=== PATIENT | male | born 1960 | race Caucasian/White ===

== ENCOUNTER 2018-04-25 08:22 | Inpatient (IN) | payer BC ==
[2018-04-19 12:02] LABS: BASOPHILS % (AUTO) 0.6 % (0-1); EOSINOPHILS # (AUTO) 0.2 X10'3 (0-0.9); EOSINOPHILS % (AUTO) 2.6 % (0-6); MEAN CORPUSCULAR HEMOGLOBIN 32.5 PG (27.0-31.0); MEAN CORPUSCULAR HGB CONC 34.3 % (33.0-36.5); MEAN CORPUSCULAR VOLUME 94.7 FL (78-98); MONOCYTES # (AUTO) 0.9 X10'3 (0-0.9); MONOCYTES % (AUTO) 12.9 % (2-12); NEUTROPHILS # (AUTO) 3.8 X10'3 (1.8-7.7); NEUTROPHILS % (AUTO) 54.9 % (42-75); PRE OP HEMATOCRIT 45.5 % (42.0-52.0); PRE OP HEMOGLOBIN 15.6 g/dL (14.0-17.9); PRE OP PLATELET COUNT 178 X10'3 (140-440); RED CELL DISTRIBUTION WIDTH 13.2 % (11.5-14.5)
[2018-04-19 12:16] LABS: ALBUMIN 4.2 G/DL (3.4-5.0); ALBUMIN/GLOBULIN RATIO 1.3 (1.1-1.5); ALKALINE PHOSPHATASE 109 IU/L (46-116); BLOOD UREA NITROGEN 14 MG/DL (7-18); BUN/CREATININE RATIO 17.1 (5.4-32.0); CHLORIDE 104 MMOL/L (99-107); CREATININE 0.82 MG/DL (0.60-1.10); PRE OP ALT 57 U/L (30-65); PRE OP ANION GAP 9 (8-16); PRE OP AST 31 U/L (10-37); PRE OP BILIRUB, TOTAL 0.8 MG/DL (0.0-1.0); PRE OP GLUCOSE 86 MG/DL (70-104); PRE OP SODIUM 143 MMOL/L (135-145); TOTAL CARBON DIOXIDE 29.8 MMOL/L (24-32); TOTAL PROTEIN 7.4 G/DL (6.4-8.2); eGFR > 90 ML/MIN
[2018-04-19 15:00] LABS: LARGE PLATELETS FEW; PLATELET ESTIMATE NORMAL
[~2018-04-25] VITALS: Ht 188 cm; Wt 133.8 kg
[2018-04-25] VITALS (19 sets, daily range): BP systolic 100–141; BP diastolic 58–95
[~2018-04-25 08:22] MED LIST: ATOR40TA PO; DOCUMENT DATE & TIME OF BETA-BLOCKER PO ONE; FURO-150 PO; METO-395 PO; NAPR-56 PO; NITR0.4T48 SL; POTA10TA36 PO; TRAM50TA2 PO; acetaminophen 325mg tablet PO ONE; ceFAZolin inj. 3,000 MG in normal saline 100ml IV soln 100 ML IV ONE; famotidine 20mg tablet PO ONE; gabapentin 300mg capsule PO ONE; metoclopramide 5 mg/ml inj IV ONE; oxyCODONE SR 10mg (sust. release) tab -2 tabs (20mg) PO ONE; ringers solution, lacted 1,000 ML IV SCH; tranexamic acid inj. 1,000 MG in normal saline 100ml IV soln 90 ML IV ONE; vancomycin inj 1,500 MG in normal saline 300ml IV soln IV ONE
[2018-04-25] MEDS ORDERED: LIDOcaine 1% (10mg/ml) 2ml vial ONE (09:11)
[2018-04-25] MEDS ORDERED: vancomycin 1,000mg inj ONE (09:44)
[2018-04-25] MEDS ORDERED: ceFAZolin 1000mg inj ONE (09:44)
[2018-04-25] MEDS ORDERED: ringers solution, lacted 1,000 ML IV SCH (10:16)
[2018-04-25] MEDS ORDERED: meperidine/PF 25mg/ml syringe IV PRN ×3 (10:20)
[2018-04-25] MEDS ORDERED: proCHLORperazine 10 MG/2 ml inj IV PRN (10:20)
[2018-04-25] MEDS ORDERED: morphine 4 MG/ML inj SYRINge IV PRN ×2 (10:20)
[2018-04-25] MEDS ORDERED: ondansetron/PF 4mg/2ml inj IV PRN ×2 (10:20→13:55)
[2018-04-25] MEDS ORDERED: tetracaine 1% (10mg/ml) pres. free inj. ONE (10:46)
[2018-04-25] MEDS ORDERED: ROPIVAcaine 0.5% (5mg/ml) 30ml vial ONE (10:47)
[2018-04-25] MEDS ORDERED: MIDAZolam 1mg/ml 10ml vial ONE (10:48)
[2018-04-25] MEDS ORDERED: fentaNYL/PF 50MCG/1 ML 2ML syringe ONE (10:49)
[2018-04-25] MEDS ORDERED: BUPIVAcaine/dex-water/PF 7.5 mg/ml 2ml ampul ONE (10:50)
[2018-04-25] MEDS ORDERED: Thrombin (Bovine) 5,000 unit vial TP ONE (11:57)
[2018-04-25] MEDS ORDERED: ROPIVAcaine inj 200 MG, ketorolac trometh inj. 30 MG, epiNEPHrine inj 0.6 MG, morphine ... IU ONE ×5 (12:20)
[2018-04-25] MEDS ORDERED: diphenhydrAMINE 25mg capsule PO PRN ×2 (13:55)
[2018-04-25] MEDS ORDERED: HYDROmorphone 1 mg/ml syringe IV PRN (13:55)
[2018-04-25] MEDS ORDERED: bisacodyl 10mg suppository rectal RC PRN (13:55)
[2018-04-25] MEDS ORDERED: oxyCODONE IR 5mg (immed. release) tablet PO PRN (13:55)
[2018-04-25] MEDS ORDERED: acetaminophen 325mg tablet PO PRN (13:55)
[2018-04-25] MEDS: acetaminophen 325mg tablet PO SCH ×2 (14:00→20:16)
[2018-04-25] MEDS ORDERED: propofol inj 20 ML IV ONE (14:10)
[2018-04-25] MEDS: oxyCODONE IR 5mg (immed. release) tablet PO PRN (16:19)
[2018-04-25] MEDS: ceFAZolin 1GM/D5W- ADD-VANTAGE 50 ML IV SCH (16:22)
[2018-04-25] MEDS ORDERED: tranexamic acid inj. 1,000 MG in normal saline 100ml IV soln 100 ML IV ONE (16:55)
[2018-04-25] MEDS: HYDROmorphone 1 mg/ml syringe IV PRN (16:59)
[2018-04-25] MEDS ORDERED: nitroGLYCERIN 0.4mg SUBLingual tab SL PRN (18:00)
[2018-04-25] MEDS: metoprolol succinate 25mg (24-HOUR) SR. Tablet PO SCH (18:30)
[2018-04-25] MEDS ORDERED: vancomycin/NS 1 GM ADD-VANTAGE 250 ML IV SCH (20:00)
[2018-04-25] MEDS: potassium cl 20mEq in 1/2 NS 1,000 ML IV SCH ×2 (20:15→21:52)
[2018-04-25] MEDS: oxyCODONE SR 10mg (sust. release) tab PO SCH (20:16)
[2018-04-25] MEDS: sennosides 8.6mg tablet PO SCH (21:00)
[2018-04-26] VITALS (7 sets, daily range): BP systolic 123–144; BP diastolic 67–78
[2018-04-26] MEDS: ceFAZolin 1GM/D5W- ADD-VANTAGE 50 ML IV SCH (00:24)
[2018-04-26] MEDS: acetaminophen 325mg tablet PO SCH ×4 (02:18→20:17)
[2018-04-26] MEDS: oxyCODONE IR 5mg (immed. release) tablet PO PRN ×5 (02:18→22:51)
[2018-04-26 05:56] LABS: BASOPHILS % (AUTO) 0.3 % (0-1); EOSINOPHILS # (AUTO) 0.1 X10'3 (0-0.9); EOSINOPHILS % (AUTO) 0.9 % (0-6); HEMATOCRIT 40.6 % (42.0-52.0); LYMPHOCYTES % (AUTO) 8.4 % (21-51); MEAN CORPUSCULAR HEMOGLOBIN 32.8 PG (27.0-31.0); MEAN CORPUSCULAR HGB CONC 34.6 % (33.0-36.5); MEAN CORPUSCULAR VOLUME 94.7 FL (78-98); MEAN PLATELET VOLUME 11.2 FL (7.4-10.4); MONOCYTES # (AUTO) 1.1 X10'3 (0-0.9); MONOCYTES % (AUTO) 8.9 % (2-12); NEUTROPHILS # (AUTO) 9.6 X10'3 (1.8-7.7); NEUTROPHILS % (AUTO) 81.5 % (42-75); PLATELET COUNT 145 X10'3 (140-440); RED BLOOD COUNT 4.29 X10'6 (4.70-6.10); RED CELL DISTRIBUTION WIDTH 12.8 % (11.5-14.5); WHITE BLOOD COUNT 11.8 X10'3 (4.5-11.0)
[2018-04-26] MEDS: potassium cl 20mEq in 1/2 NS 1,000 ML IV SCH ×3 (06:01→21:18)
[2018-04-26] MEDS ORDERED: WALKERFR (07:46)
[2018-04-26] MEDS: potassium chloride 10mEq ER tablet PO SCH (08:54)
[2018-04-26] MEDS: metoprolol succinate 25mg (24-HOUR) SR. Tablet PO SCH (08:55)
[2018-04-26] MEDS: oxyCODONE SR 10mg (sust. release) tab PO SCH ×3 (08:55→20:25)
[2018-04-26] MEDS: atorvastatin 20mg tablet PO SCH (08:55)
[2018-04-26] MEDS: furosemide 20MG tablet PO SCH (08:55)
[2018-04-26] MEDS: enoxaparin 40mg/0.4ml syringe SQ SCH (08:56)
[2018-04-26] MEDS: HYDROmorphone 1 mg/ml syringe IV PRN ×2 (14:05→18:54)
[2018-04-26] MEDS: sennosides 8.6mg tablet PO SCH (20:15)
[2018-04-26] MEDS: celeCOXIB 100mg capsule PO SCH (20:16)
[2018-04-27] MEDS: acetaminophen 325mg tablet PO SCH ×2 (02:07→08:00)
[2018-04-27] MEDS: HYDROmorphone 1 mg/ml syringe IV PRN ×5 (02:08→19:31)
[2018-04-27] MEDS: oxyCODONE IR 5mg (immed. release) tablet PO PRN (05:18)
[2018-04-27 05:34] LABS: BASOPHILS # (AUTO) 0.1 X10'3 (0-0.2); BASOPHILS % (AUTO) 0.7 % (0-1); EOSINOPHILS # (AUTO) 0.3 X10'3 (0-0.9); EOSINOPHILS % (AUTO) 3.7 % (0-6); HEMATOCRIT 37.6 % (42.0-52.0); HEMOGLOBIN 12.9 g/dl (14.0-17.9); LYMPHOCYTES # (AUTO) 2.2 X10'3 (1.1-4.8); LYMPHOCYTES % (AUTO) 26.1 % (21-51); MEAN CORPUSCULAR HEMOGLOBIN 32.6 PG (27.0-31.0); MEAN CORPUSCULAR HGB CONC 34.4 % (33.0-36.5); MEAN CORPUSCULAR VOLUME 94.9 FL (78-98); MEAN PLATELET VOLUME 10.7 FL (7.4-10.4); MONOCYTES # (AUTO) 1.2 X10'3 (0-0.9); MONOCYTES % (AUTO) 14.2 % (2-12); NEUTROPHILS # (AUTO) 4.6 X10'3 (1.8-7.7); NEUTROPHILS % (AUTO) 55.3 % (42-75); PLATELET COUNT 152 X10'3 (140-440); RED BLOOD COUNT 3.97 X10'6 (4.70-6.10); WHITE BLOOD COUNT 8.3 X10'3 (4.5-11.0)
[2018-04-27 06:00] VITALS: BP 124/65
[2018-04-27] MEDS: oxyCODONE SR 10mg (sust. release) tab PO SCH ×2 (08:19→20:31)
[2018-04-27] MEDS: potassium chloride 10mEq ER tablet PO SCH (08:19)
[2018-04-27] MEDS: celeCOXIB 100mg capsule PO SCH ×2 (08:19→20:30)
[2018-04-27] MEDS: atorvastatin 20mg tablet PO SCH (08:19)
[2018-04-27] MEDS: furosemide 20MG tablet PO SCH (08:19)
[2018-04-27] MEDS: enoxaparin 40mg/0.4ml syringe SQ SCH (08:20)
[2018-04-27] MEDS: metoprolol succinate 25mg (24-HOUR) SR. Tablet PO SCH (08:20)
[2018-04-27] MEDS: oxyCODONE/APAP 10/325mg tablet PO PRN ×4 (08:45→21:46)
[2018-04-27 10:00] VITALS: BP 154/70
[2018-04-27] MEDS ORDERED: acetaminophen 325mg tablet PO PRN (13:55)
[2018-04-27 17:00] VITALS: BP 141/75
[2018-04-27] MEDS: magnesium hydroxide 30ml (MOM) UD suspension PO PRN (20:29)
[2018-04-27] MEDS: sennosides 8.6mg tablet PO SCH (20:29)
[2018-04-27 22:00] VITALS: BP 149/75
[2018-04-28] MEDS: oxyCODONE/APAP 10/325mg tablet PO PRN ×5 (01:38→23:27)
[2018-04-28 06:34] VITALS: BP 139/83
[2018-04-28] MEDS: enoxaparin 40mg/0.4ml syringe SQ SCH (07:50)
[2018-04-28] MEDS: celeCOXIB 100mg capsule PO SCH ×2 (07:50→19:15)
[2018-04-28] MEDS: oxyCODONE SR 10mg (sust. release) tab PO SCH ×2 (07:50→19:15)
[2018-04-28] MEDS: potassium chloride 10mEq ER tablet PO SCH (07:52)
[2018-04-28] MEDS: furosemide 20MG tablet PO SCH (07:52)
[2018-04-28] MEDS: metoprolol succinate 25mg (24-HOUR) SR. Tablet PO SCH (07:52)
[2018-04-28] MEDS: atorvastatin 20mg tablet PO SCH (07:52)
[2018-04-28 08:08] LABS: BASOPHILS # (AUTO) 0.1 X10'3 (0-0.2); BASOPHILS % (AUTO) 0.8 % (0-1); EOSINOPHILS # (AUTO) 0.3 X10'3 (0-0.9); HEMOGLOBIN 13.4 g/dl (14.0-17.9); LYMPHOCYTES # (AUTO) 1.9 X10'3 (1.1-4.8); LYMPHOCYTES % (AUTO) 22.3 % (21-51); MEAN CORPUSCULAR HEMOGLOBIN 32.4 PG (27.0-31.0); MEAN CORPUSCULAR HGB CONC 34.3 % (33.0-36.5); MEAN CORPUSCULAR VOLUME 94.5 FL (78-98); MEAN PLATELET VOLUME 11.1 FL (7.4-10.4); MONOCYTES % (AUTO) 12.2 % (2-12); NEUTROPHILS # (AUTO) 5.1 X10'3 (1.8-7.7); NEUTROPHILS % (AUTO) 60.7 % (42-75); PLATELET COUNT 162 X10'3 (140-440); RED BLOOD COUNT 4.13 X10'6 (4.70-6.10); RED CELL DISTRIBUTION WIDTH 13.2 % (11.5-14.5); WHITE BLOOD COUNT 8.4 X10'3 (4.5-11.0)
[2018-04-28 08:38] LABS: LARGE PLATELETS FEW; PLATELET ESTIMATE NORMAL
[2018-04-28 10:00] VITALS: BP 140/88
[2018-04-28 18:00] VITALS: BP 153/78
[2018-04-28] MEDS: sennosides 8.6mg tablet PO SCH (20:27)
[2018-04-28 22:00] VITALS: BP 136/64
[2018-04-29] MEDS: oxyCODONE/APAP 10/325mg tablet PO PRN ×4 (02:39→17:53)
[2018-04-29 06:00] VITALS: BP 160/76
[2018-04-29] MEDS: potassium chloride 10mEq ER tablet PO SCH (07:16)
[2018-04-29] MEDS: oxyCODONE SR 10mg (sust. release) tab PO SCH ×2 (07:16→19:32)
[2018-04-29] MEDS: metoprolol succinate 25mg (24-HOUR) SR. Tablet PO SCH (07:16)
[2018-04-29] MEDS: furosemide 20MG tablet PO SCH (07:16)
[2018-04-29] MEDS: atorvastatin 20mg tablet PO SCH (07:16)
[2018-04-29] MEDS: celeCOXIB 100mg capsule PO SCH ×2 (07:16→19:31)
[2018-04-29] MEDS: enoxaparin 40mg/0.4ml syringe SQ SCH (07:17)
[2018-04-29] MEDS: magnesium hydroxide 30ml (MOM) UD suspension PO PRN (07:17)
[2018-04-29 10:00] VITALS: BP 146/87
[2018-04-29 18:00] VITALS: BP 151/85
[2018-04-29] MEDS: sennosides 8.6mg tablet PO SCH (19:32)
[2018-04-29 22:00] VITALS: BP 132/77
[2018-04-30] MEDS: oxyCODONE/APAP 10/325mg tablet PO PRN ×2 (00:09→05:22)
[2018-04-30 07:04] VITALS: BP 152/86
[2018-04-30] MEDS: oxyCODONE SR 10mg (sust. release) tab PO SCH (07:31)
[2018-04-30] MEDS: potassium chloride 10mEq ER tablet PO SCH (07:31)
[2018-04-30] MEDS: atorvastatin 20mg tablet PO SCH (07:31)
[2018-04-30] MEDS: furosemide 20MG tablet PO SCH (07:31)
[2018-04-30] MEDS: metoprolol succinate 25mg (24-HOUR) SR. Tablet PO SCH (07:31)
[2018-04-30] MEDS: celeCOXIB 100mg capsule PO SCH (07:31)
[2018-04-30] MEDS: enoxaparin 40mg/0.4ml syringe SQ SCH (07:32)
[2018-05-01] MEDS ORDERED: OXYC-138 PO (16:53)
== END 2018-04-30 12:45 | disposition home or self-care (01) | DRG 470 ==
LOC: PAS IN 08:22 → EDSTATUS 10:45 → ORTHO 4S 15:17
PROVIDERS: ADMIT Orthopaedic Surgery; ATTEND Orthopaedic Surgery
PROC: 3E0T3BZ Introduction of Anesthetic Agent into Peripheral Nerves and Plexi, Percutaneous Approach (ICD-10-PCS; 2018-04-25)
PROC: 0SRC069 Replacement of Right Knee Joint with Oxidized Zirconium on Polyethylene Synthetic Substitute, Cemented, Open Approach (ICD-10-PCS; principal; 2018-04-25 10:41)
DX: M17.11 Unilateral primary osteoarthritis, right knee (principal); D62 Acute posthemorrhagic anemia; E78.5 Hyperlipidemia, unspecified; G47.30 Sleep apnea, unspecified; I10 Essential (primary) hypertension; E66.9 Obesity, unspecified; Z68.37 Body mass index [BMI] 37.0-37.9, adult; Z79.899 Other long term (current) drug therapy
CPT/HCPCS: 36415; 80053; 85025; 87070; 97110; 97116; 97161; 97530; A6209; A6455; A7000; C1713; C1758; C1776; J0690; J1170; J1650; J2250; J2704; J2765; J2795; J3010; J3370; J3490; J7030; J7120

== ENCOUNTER 2018-05-01 15:21 | Emergency (ER) | payer BC ==
[~2018-05-01] VITALS: Ht 188 cm; Wt 125.0 kg
[~2018-05-01 15:21] MED LIST changes: -DOCUMENT DATE & TIME OF BETA-BLOCKER PO ONE; +WALKERFR; -acetaminophen 325mg tablet PO ONE; -ceFAZolin inj. 3,000 MG in normal saline 100ml IV soln 100 ML IV ONE; -famotidine 20mg tablet PO ONE; -gabapentin 300mg capsule PO ONE; -metoclopramide 5 mg/ml inj IV ONE; -oxyCODONE SR 10mg (sust. release) tab -2 tabs (20mg) PO ONE; -ringers solution, lacted 1,000 ML IV SCH; -tranexamic acid inj. 1,000 MG in normal saline 100ml IV soln 90 ML IV ONE; -vancomycin inj 1,500 MG in normal saline 300ml IV soln IV ONE
[2018-05-01] MEDS ORDERED: HYDROmorphone 1 mg/ml syringe IV ONE ×2 (15:55→17:30)
[2018-05-01] MEDS ORDERED: ondansetron/PF 4mg/2ml inj IV ONE (15:55)
[2018-05-01 16:14] VITALS: BP 157/83
[2018-05-01 16:16] LABS: BASOPHILS # (AUTO) 0.1 X10'3 (0-0.2); BASOPHILS % (AUTO) 0.7 % (0-1); EOSINOPHILS # (AUTO) 0.1 X10'3 (0-0.9); EOSINOPHILS % (AUTO) 1.7 % (0-6); HEMATOCRIT 39.5 % (42.0-52.0); HEMOGLOBIN 13.6 g/dl (14.0-17.9); LYMPHOCYTES # (AUTO) 1.2 X10'3 (1.1-4.8); LYMPHOCYTES % (AUTO) 14.3 % (21-51); MEAN CORPUSCULAR HEMOGLOBIN 32.5 PG (27.0-31.0); MEAN CORPUSCULAR HGB CONC 34.4 % (33.0-36.5); MEAN CORPUSCULAR VOLUME 94.5 FL (78-98); MONOCYTES # (AUTO) 1.1 X10'3 (0-0.9); MONOCYTES % (AUTO) 12.2 % (2-12); NEUTROPHILS # (AUTO) 6.2 X10'3 (1.8-7.7); NEUTROPHILS % (AUTO) 71.1 % (42-75); PLATELET COUNT 239 X10'3 (140-440); RED BLOOD COUNT 4.18 X10'6 (4.70-6.10); WHITE BLOOD COUNT 8.7 X10'3 (4.5-11.0)
[2018-05-01 16:25] LABS: PARTIAL THROMBOPLASTIN TIME 31 SECONDS (22-32); PROTHROMBIN TIME 10.3 SECONDS (9.0-12.0)
[2018-05-01 16:31] LABS: ALANINE AMINOTRANSFERASE 38 U/L (12-78); ALBUMIN 3.6 G/DL (3.4-5.0); ALBUMIN/GLOBULIN RATIO 0.9 (1.1-1.5); ALKALINE PHOSPHATASE 96 IU/L (46-116); ANION GAP 13 (8-16); ASPARTATE AMINO TRANSFERASE 31 U/L (10-37); BILIRUBIN,TOTAL 1.3 MG/DL (0.1-1.0); BLOOD UREA NITROGEN 16 MG/DL (7-18); BUN/CREATININE RATIO 18.8 (5.4-32.0); CALCIUM 9.7 MG/DL (8.5-10.1); CHLORIDE 104 MMOL/L (99-107); CREATININE 0.85 MG/DL (0.60-1.10); GLUCOSE 119 MG/DL (70-104); POTASSIUM 3.7 MMOL/L (3.5-5.1); SODIUM 143 MMOL/L (135-145); TOTAL CARBON DIOXIDE 26.2 MMOL/L (24-32); TOTAL PROTEIN 7.4 G/DL (6.4-8.2); eGFR > 90 ML/MIN
[2018-05-01] MEDS ORDERED: OXYC-138 PO (16:53)
[2018-05-01] MEDS ORDERED: ketorolac trometh. 30mg/ml inj. IV ONE (17:30)
== END 2018-05-01 17:57 | disposition home or self-care (01) ==
LOC: ER 15:23
DX: S80.01XA Contusion of right knee, initial encounter (principal); M96.89 Other intraoperative and postprocedural complications and disorders of the musculoskeletal system; M25.461 Effusion, right knee; Z96.651 Presence of right artificial knee joint; Z87.891 Personal history of nicotine dependence; Z98.890 Other specified postprocedural states; Z79.899 Other long term (current) drug therapy; X58.XXXA Exposure to other specified factors, initial encounter; Y93.89 Activity, other specified; Y92.89 Other specified places as the place of occurrence of the external cause; Y99.9 Unspecified external cause status
CPT/HCPCS: 36415; 71045; 80053; 83605; 84145; 85025; 85610; 85730; 87040; 93971; 96374; 96375; 96376; 99285; J1170; J1885; J2405

== ENCOUNTER 2018-05-07 07:40 | Emergency (ER) | payer BC ==
[~2018-05-07] VITALS: Ht 188 cm; Wt 134.0 kg
[~2018-05-07 07:40] MED LIST changes: +OXYC-138 PO
[2018-05-07] MEDS ORDERED: OXYC10TA47 PO (07:51)
[2018-05-07] MEDS ORDERED: HYDR-4353 PO ×2 (07:55→09:33)
[2018-05-07] MEDS ORDERED: ASPI-611 PO (07:55)
[2018-05-07] MEDS ORDERED: ondansetron/PF 4mg/2ml inj IV ONE (07:55)
[2018-05-07] MEDS ORDERED: HYDROmorphone inj. 0.5 MG/0.5 ML DISP.SYRIN IV ONE (07:55)
[2018-05-07] MEDS ORDERED: normal saline 1000ml 1,000 ML IV ONE (07:55)
[2018-05-07 08:33] LABS: BASOPHILS # (AUTO) 0.1 X10'3 (0-0.2); EOSINOPHILS # (AUTO) 0.1 X10'3 (0-0.9); EOSINOPHILS % (AUTO) 1.5 % (0-6); HEMATOCRIT 39.9 % (42.0-52.0); HEMOGLOBIN 13.9 g/dl (14.0-17.9); LYMPHOCYTES # (AUTO) 1.4 X10'3 (1.1-4.8); LYMPHOCYTES % (AUTO) 16.1 % (21-51); MEAN CORPUSCULAR HEMOGLOBIN 33.4 PG (27.0-31.0); MEAN CORPUSCULAR VOLUME 95.5 FL (78-98); MEAN PLATELET VOLUME 9.8 FL (7.4-10.4); MONOCYTES # (AUTO) 0.9 X10'3 (0-0.9); MONOCYTES % (AUTO) 9.9 % (2-12); NEUTROPHILS # (AUTO) 6.5 X10'3 (1.8-7.7); NEUTROPHILS % (AUTO) 71.5 % (42-75); PLATELET COUNT 262 X10'3 (140-440); RED BLOOD COUNT 4.17 X10'6 (4.70-6.10); RED CELL DISTRIBUTION WIDTH 12.5 % (11.5-14.5)
[2018-05-07 08:41] LABS: PROTHROMBIN TIME 10.7 SECONDS (9.0-12.0)
[2018-05-07 08:50] LABS: ALANINE AMINOTRANSFERASE 35 U/L (12-78); ALBUMIN 3.8 G/DL (3.4-5.0); ALBUMIN/GLOBULIN RATIO 1.1 (1.1-1.5); ALKALINE PHOSPHATASE 100 IU/L (46-116); ANION GAP 9 (8-16); ASPARTATE AMINO TRANSFERASE 28 U/L (10-37); BLOOD UREA NITROGEN 13 MG/DL (7-18); BUN/CREATININE RATIO 16.5 (5.4-32.0); CHLORIDE 103 MMOL/L (99-107); CREATININE 0.79 MG/DL (0.60-1.10); GLUCOSE 109 MG/DL (70-104); MAGNESIUM 2.1 MG/DL (1.5-2.4); POTASSIUM 4.2 MMOL/L (3.5-5.1); SODIUM 141 MMOL/L (135-145); TOTAL CARBON DIOXIDE 28.9 MMOL/L (24-32); TOTAL PROTEIN 7.4 G/DL (6.4-8.2); eGFR > 90 ML/MIN
[2018-05-07] MEDS ORDERED: HYDROcodone/acetaminophen 10/325mg tab PO ONE (09:25)
[2018-05-07] MEDS ORDERED: HYDROmorphone 1 mg/ml syringe IV ONE (09:25)
[2018-05-07 10:08] VITALS: BP 158/92
== END 2018-05-07 10:10 | disposition home or self-care (01) ==
LOC: ER 07:40
DX: G89.18 Other acute postprocedural pain (principal); M19.90 Unspecified osteoarthritis, unspecified site; Z88.8 Allergy status to other drugs, medicaments and biological substances; Z79.82 Long term (current) use of aspirin; Z79.899 Other long term (current) drug therapy; Z96.651 Presence of right artificial knee joint; Z99.2 Dependence on renal dialysis
CPT/HCPCS: 36415; 80053; 83605; 83735; 84145; 85025; 85610; 87040; 93971; 96374; 96375; 96376; 99285; J1170; J2405